=== PATIENT | male | born 1990 | race Hispanic/Latino ===

== ENCOUNTER 2017-05-02 20:28 | Emergency (ER) | payer SELFPAY ==
[2017-05-02] MEDS ORDERED: Fluorescein Opthalmic Strip ONE (21:03)
[2017-05-02] MEDS ORDERED: Proparacaine 0.5% Opth 15 ML BOT ONE (21:03)
[2017-05-02] MEDS ORDERED: Erythromycin Base 0.5% Oint 1 GM TUBE ONE (22:01)
== END 2017-05-02 23:15 | disposition home or self-care (01) ==
LOC: ERS 20:28
DX: S05.02XA Injury of conjunctiva and corneal abrasion without foreign body, left eye, initial encounter (principal); X58.XXXA Exposure to other specified factors, initial encounter
CPT/HCPCS: 99283